=== PATIENT | male | born 1980 | race Caucasian/White ===

== ENCOUNTER 2018-10-13 17:50 | Emergency (ER) | payer OTHER, SELFPAY ==
[2018-10-13 18:23] VITALS: BP 113/62; PULSE 118; RESP 17; TEMP 37.4; O2SAT 99
[2018-10-13] MEDS: PROPARACAINE 0.5% OPHTH SOL 1 DROPS EYE-RIGHT (18:34)
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
[2018-10-13 20:04] VITALS: BP 117/67; PULSE 73; RESP 16; TEMP 36.5; O2SAT 99
== END 2018-10-13 20:09 | disposition home or self-care (01) ==
PROVIDERS: Emergency Provider Internal Medicine
DX: H53.9 Unspecified visual disturbance (principal); S05.31XA Ocular laceration without prolapse or loss of intraocular tissue, right eye, initial encounter
CPT/HCPCS: 99283